=== PATIENT | female | born 2000 | race Caucasian/White ===

== ENCOUNTER 2024-06-21 15:59 | Outpatient (CLI) | payer OTHER, MEDICAID, SELFPAY | END 2024-06-21 16:00 | disposition home or self-care (01) | PROVIDERS: Visit Provider Advanced Practice Midwife | DX: Z34.81 Encounter for supervision of other normal pregnancy, first trimester (principal); Z3A.12 12 weeks gestation of pregnancy | CPT/HCPCS: 83520; 84443 ==

== ENCOUNTER 2024-08-12 12:47 | Outpatient (CLI) | payer BC, OTHER, SELFPAY ==
--- NOTE | 2024-08-12 13:00 | CRLHL7_ITS ---
For Patients: As a result of the Century Cures Act, medical imaging exams and procedure reports are released immediately into your electronic medical record. You may view this report before your referring provider. If you have questions, please contact your health care provider. INDICATION: 2nd trimester anatomical survey. TECHNIQUE: Ultrasound OB pelvis transabdominal. Real-time pope-scale imaging of the fetus was performed as well as color Doppler and spectral Doppler analysis of the umbilical artery. COMPARISON: 06/03/2024. FINDINGS: Intrauterine gestation: Single. heart rate: Regular, 149 bpm. presentation: Cephalic. Placenta: Posterior without previa. Cervix: 5 cm. Amniotic fluid: 4 cm deepest pocket. Biometry: Biparietal diameter: 19 weeks 2 days. Head circumference: 20 weeks 0 days. Abdominal circumference: 20 weeks 4 days. Femur length: 20 weeks 0 days. EFW: 341 gm, 28 %. Anatomical Survey: 4 chamber heart: Visualized. Stomach: Visualized. Kidneys: Visualized. Bladder: Visualized. Spine: Visualized. Sacrum: Visualized. 4 extremities: Visualized. Cord insertion: Visualized. 3V cord: Visualized. Face: Visualized. Nose: Visualized. Lips: Visualized. Cerebellum: Visualized. Cisterna Magna: Visualized. Lateral ventricles: Visualized. IMPRESSION: 1. Single viable intrauterine . 2. No intrinsic abnormalities noted on anatomic survey. Dictated by Wilfrid Gudino MD @ 08/15/2024 8:38:59 PM (Electronically Signed)
== END 2024-08-12 12:48 | disposition home or self-care (01) ==
LOC: US 12:47
PROVIDERS: Visit Provider Obstetrics & Gynecology
DX: Z34.92 Encounter for supervision of normal pregnancy, unspecified, second trimester (principal); Z3A.20 20 weeks gestation of pregnancy
CPT/HCPCS: 76805

== ENCOUNTER 2024-08-27 11:06 | Outpatient (CLI) | payer OTHER, BC, SELFPAY ==
--- NOTE | 2024-08-27 11:15 | CRLHL7_ITS ---
For Patients: As a result of the Century Cures Act, medical imaging exams and procedure reports are released immediately into your electronic medical record. You may view this report before your referring provider. If you have questions, please contact your health care provider. INDICATION: Suboptimal views of cardiac anatomy COMPARISON: 08/12/2024 TECHNIQUE: Real time pope scale imaging of the fetus was performed. FINDINGS: Sonographic imaging demonstrates a single living intrauterine gestation. Fetus demonstrates a regular cardiac rate of 155 beats per minute. Fetus has a breech position. The placenta lies left-sided anterior/posterior. Amniotic fluid volume appears normal. Single deepest vertical pocket: 5.7 cm. There is a normal four-chamber heart view and the left and right ventricular outflow tracts appear normal. Normal 3VV and 3VTV. IMPRESSION: Normal cardiac views. Dictated by Connor Domínguze MD @ 08/30/2024 4:28:27 PM (Electronically Signed)
== END 2024-08-27 11:07 | disposition home or self-care (01) ==
LOC: US 11:07
PROVIDERS: Visit Provider Obstetrics & Gynecology
DX: O36.8390 Maternal care for abnormalities of the fetal heart rate or rhythm, unspecified trimester, not applicable or unspecified (principal)
CPT/HCPCS: 76816

== ENCOUNTER 2024-10-05 13:16 | Outpatient (CLI) | payer OTHER, BC, SELFPAY | END 2024-10-05 13:17 | disposition home or self-care (01) | LOC: NFLDREF 10-08 21:56 | PROVIDERS: Visit Provider Obstetrics & Gynecology | DX: Z34.93 Encounter for supervision of normal pregnancy, unspecified, third trimester (principal); Z3A.28 28 weeks gestation of pregnancy | CPT/HCPCS: 86592 ==

== ENCOUNTER 2024-10-20 13:56 | Outpatient (CLI) | payer OTHER, BC, SELFPAY ==
--- NOTE | 2024-10-20 14:00 | CRLHL7_ITS ---
For Patients: As a result of the Century Cures Act, medical imaging exams and procedure reports are released immediately into your electronic medical record. You may view this report before your referring provider. If you have questions, please contact your health care provider. INDICATION: Size inconsistent with dates TECHNIQUE: Limited transabdominal two-dimensional pope-scale ultrasound examination. COMPARISON: 08/27/2024 FINDINGS: There is a living fetus in cephalic lie with gestational age of 30 weeks 3 days by LMP and 31 weeks 3 days by today`s measurements EDC based on LMP is 12/26/2024. BPD: 7.9 cm, 31 weeks 5 days Head circumference: 29.2 cm, 32 weeks 1 day Abdominal circumference: 28.2 cm, 32 weeks 3 days Femur length: 5.6 cm, 29 weeks 4 days HC/AC: 19.9 The weight is estimated at 1753 grams, the 71st percentile. The heart rate is measured at 155 beats per minute and the rhythm appears regular. The amniotic fluid volume is within normal limits with single deepest pocket of 5.8 cm. The placenta is posterior and superior to the cervical os. There is no evidence of previa. IMPRESSION: 1. Living fetus in cephalic lie with gestational age of 30 weeks 3 days by LMP and 31 weeks 3 days by today`s measurements EDC based on LMP is 12/26/2024. 2. weight estimated at 1753 grams, the 71st percentile. 3. ML volume within normal limits with single deepest pocket measured at 5.8 cm. Dictated by Bairon Segura MD @ 10/21/2024 11:02:24 AM (Electronically Signed)
== END 2024-10-20 13:57 | disposition home or self-care (01) ==
LOC: US 13:58
PROVIDERS: Visit Provider Obstetrics & Gynecology
DX: O26.843 Uterine size-date discrepancy, third trimester (principal); Z3A.30 30 weeks gestation of pregnancy
CPT/HCPCS: 76816

== ENCOUNTER 2024-11-15 10:05 | Outpatient (CLI) | payer OTHER, BC, SELFPAY | END 2024-11-15 10:06 | disposition home or self-care (01) | LOC: NFLDREF 11-16 02:34 | PROVIDERS: Visit Provider Obstetrics & Gynecology | DX: O99.013 Anemia complicating pregnancy, third trimester (principal); Z3A.34 34 weeks gestation of pregnancy | CPT/HCPCS: 82728 ==

== ENCOUNTER 2024-11-23 13:47 | Outpatient (RCR) | payer OTHER, BC, SELFPAY ==
--- NOTE | 2024-11-18 08:16 | URNOTE ---
Request received for authorization for Iron Sucrose (Venofer) ([id number]). Prior authorization is not required per [facility] web site.
--- NOTE | 2024-11-18 08:18 | URNOTE ---
Request received for authorization for Iron Sucrose (Venofer) ([id number]). Prior authorization is not required per R rep Chaim Lopez Ref#[id number], and pt has 2nd insurance [employer] no [place] danielq. per web site.
[2024-11-23 13:58] VITALS: BP 118/73; PULSE 100; RESP 16; TEMP 36.4; O2SAT 96
[2024-11-23 14:58] VITALS: BP 122/74; PULSE 100; RESP 16; TEMP 37; O2SAT 96
[2024-11-23 15:25] VITALS: BP 123/74; PULSE 93; RESP 18; O2SAT 97
== END 2025-05-22 23:59 | disposition home or self-care (01) ==
LOC: CCIC 13:47
PROVIDERS: PCP Physician Assistant; Visit Provider Clinical Nurse Specialist
DX: O99.013 Anemia complicating pregnancy, third trimester (principal); D50.9 Iron deficiency anemia, unspecified
CPT/HCPCS: 96365; J1756

== ENCOUNTER 2024-11-29 11:50 | Outpatient (CLI) | payer OTHER, BC, SELFPAY | END 2024-11-29 11:51 | disposition home or self-care (01) | LOC: NFLDREF 12-01 01:52 | PROVIDERS: PCP Physician Assistant; Visit Provider Obstetrics & Gynecology | DX: Z34.93 Encounter for supervision of normal pregnancy, unspecified, third trimester (principal); Z3A.36 36 weeks gestation of pregnancy | CPT/HCPCS: 87081; 87653 ==

== ENCOUNTER 2024-12-03 09:31 | Outpatient (CLI) | payer OTHER, BC, SELFPAY ==
[2024-12-03 09:37] VITALS: RESP 18; TEMP 36.6
[2024-12-03 10:30] LABS: Appearance Urine Turbid (Clear); Bilirubin Urine Negative (Negative); Blood Urine 2+ (Negative); Color Urine Yellow (Yellow); Glucose Urine Negative (Negative); Ketones Urine Negative (Negative); Leukocyte Esterase Urine 2+ (Negative); Nitrite Urine Negative (Negative); Protein Urine 1+ (Negative); Urobilinogen Urine 0.2 (0.2-1.0)
[2024-12-03 10:53] LABS: Bacteria Urine Moderate; RBC Urine 0-2 (0-2); Squamous Epithelial Cell Urine Many (None-Few)
--- NOTE | 2024-12-03 12:45 | PC.OBNST ---
NST Note NST Note Start: 12/03/24 09:38 Freq: ONCE Status: Active Protocol: Document 12/03/24 09:38 [facility] (Rec: 12/03/24 12:45 [facility] [id number]) NST Note 2 Para (# of births) 1 EDC 12/26/24 Gestational Age In Weeks & Days 36 Weeks & 5 Days Patient Presented with Complaint(s) of Contractions/cramping Other Complaints positive for UTI Reactive Yes Appropriate for Gestational Age Yes JOHNNIE Valle RN Date 12/03/24 Reactive Yes Appropriate for Gestational Age Yes JOHNNIE Veras RN Date 12/03/24 OB NST charge Yes Complete NST Note via Write Note Yes The provider's electronic signature indicates the NST is reactive/appropriate for gestational age. *Note to provider: If an addendum is required, open the patient's chart and click on the note under the Nurse/Allied Health tab.
== END 2024-12-03 12:45 | disposition home or self-care (01) ==
LOC: OB OUT 09:33 → OB 09:36
PROVIDERS: PCP Physician Assistant; Visit Provider Obstetrics & Gynecology
DX: O47.03 False labor before 37 completed weeks of gestation, third trimester (principal); Z3A.36 36 weeks gestation of pregnancy
CPT/HCPCS: 59025; 81001; 81003; 87086; G0463

== ENCOUNTER 2024-12-17 12:48 | Outpatient (CLI) | payer OTHER, BC, SELFPAY ==
--- NOTE | 2024-12-17 13:00 | CRLHL7_ITS ---
For Patients: As a result of the Century Cures Act, medical imaging exams and procedure reports are released immediately into your electronic medical record. You may view this report before your referring provider. If you have questions, please contact your health care provider. EFREN by LMP: 12/26/2024. GA: 38w, 5d. COMPARISONS: 10/20/2024, 08/27/2024, 08/12/2024, 06/03/2024. Single. INDICATION: Growth, size/date discrepancy. CERVIX: Not visualized. POSITIONING: Vertex. AMNIOTIC FLUID: 6.8 cm SDP. PLACENTA: Technique: Transabdominal. PLACENTA POSITION: Posterior left wall. DOPPLER: heart rate: 152 bpm. Biometry: BPD: 10.0 cm. 41w, 1d, >97 percent. HC: 35.7 cm. OOR, 94.5 percent. AC: 38.6 cm. OOR, >97 percent. FL: 7.0 cm. 36w, 0d, 4.3 percent. FL/AC ratio: 18.2 percent. HC/AC ratio: 0.9. EFW: 4324 g. Weight: 9 lbs, 9 oz. age by this US: 38w, 4d. EFREN by this US: 12/27/2024. Percentile by EFREN: >97 percent. IMPRESSION: 1. Sonographic gestational age 38 weeks 4 days and sonographic due date 12/27/2024. Good correlation with dates. Normal interval growth. 2. Estimated weight greater than 97th percentile. Abdominal circumference and BPD greater than 97th percentile. FL 4th percentile. 3. Biophysical profile not performed. Connor Domínguez M.D. Diagnostic Radiologist [email or web address] bM/Dictated by: Connor Domínguez MD @ 12/17/2024 3:58:00 PM (Electronically Signed)
== END 2024-12-17 12:49 | disposition home or self-care (01) ==
LOC: US 12:48
PROVIDERS: PCP Physician Assistant; Visit Provider Obstetrics & Gynecology
DX: O26.843 Uterine size-date discrepancy, third trimester (principal); Z3A.38 38 weeks gestation of pregnancy
CPT/HCPCS: 76816

== ENCOUNTER 2024-12-20 05:40 | Inpatient (IN) | payer OTHER, BC, SELFPAY ==
[2024-12-20] VITALS (28 sets, daily range): BP systolic 130–152; BP diastolic 67–90; PULSE 76–106; RESP 16–20; TEMP 36.7–37.2; O2SAT 84–100; BMI 38.7
[2024-12-20 06:40] LABS: Hemoglobin* 9.7 gm/dL (12.0-16.0)
[2024-12-20] MEDS: LACTATED RINGERS 1000 ML 1,000 ML 800 ML IV (06:42)
--- NOTE | 2024-12-20 07:12 | W.PM.LDBA ---
Subjective History of Present Illness Time Seen by Provider: 07:12 Date Seen: 12/20/24 Narrative: Patient is being admitted to Labor and Delivery for schedule repeat CD. She is a 24 year old at 39.1 weeks gestation. Her full history and physical was dictated by myself on 11/29/24. Please see this for details. She is nervous today but excited to delivery as she's been having MSK pain. Intermittent nonpainful contractions. Denies LOF, vaginal bleeding, or abnormal vaginal discharge. Specific Issues/Plans Partner: Burt Son: Burt (child by a previous partner). Baby: Lisa Tx pt from [place] at 13 wks H&P: 11/29/[address] Nguyen. #Hx of C/S last delivery desires TOLAC-changed her mind would like repeat delivery. Reviewed consent and given to the patient on 07/22/2024 Chance of successful : 51.3% Consent signed for repeat CD on 11/29/24 #Anemia at 28 weeks 9.4mg/dL Ferrous sulfate 325 mg QOD Repeat hemoglobin at 34 weeks s/p Iron Infusion on 11/23/24 #Hx of anxiety and depression not on medications, feels stable on tx visit # TSH with NOB labs 3.51 free T4 1.06 recheck of TSH on tx visit TSH 2.7, no hx of thyroid disorder OB Labs: ? Blood type: A+, antibody screen negative. ? Hgb: 12.5 ? Platelets: 210 ? Rubella: Immune ? Varicella: Immune RPR: non-reactive ? HBsAg: non-reactive ? Hep C: negative HIV: negative ? UC: negative GC/Chlamydia: negative/negative ? Pap (01/06/22): NIL Genetic screening: declined 34 week hgb: 9.8 s/p IV iron on 11/23 ? IMAGING: ? 1st trimester: Single intrauterine measuring 10 weeks 0 days with a sonographic due date of December. No abnormalities seen. ? 08/12/2024 2nd trimester FAS: Vtx, SDP: 4.3cm. Suboptimal visualization of cardiac anatomy otherwise no abnormalities were visualized. EFW: 342g, 12 oz, 28%. 10/20/24: cephalic, normal fluid, EFW 71%, AC 91%, all other growth parameters within normal ranges. Immunizations: Influenza: declines Covid: declines Tdap: 10/19/24 RSV: 11/15/2024 32 week mental health: PHQ = 0, CIERRA =0 GBS: 11/29/24 OB - Problem Based A/P Additional Plan (1) Anemia: Status: Acute Plan: - Hgb at 9.4 on 10/05/24 - S/p IV iron on 11/23/24 - Hgb 9.7 gm/dL on 12/20/24 - T&S: A+ , antibody screen negative (2) Hx of section complicating : Status: Acute Plan: - We reviewed her consent again. We are having a repeat delivery for the indication of hx of previous CD x 1 and declined TOLAC. The patient was consented for section and blood. She understands that the four main categories of risk include pain, bleeding, infection, and damage to surrounding structures. Intraoperative pain will be manage with spinal anesthesia or epidural anesthesia. If that those are not effective or not appropriate for the clinical situation, general anesthesia will be administered. Immediately postop, TAP block will be performed. Throughout her recovery course, she will have on PO pain medications such as ibuprofen, Tylenol, and oxycodone. Regarding infection, she understands that we will be delivering appropriate antibiotics, however that the risk of infection following section still is approximately 5%. She understands that though the risk is very low that there is always a risk of damage to the bladder, uterus, ovaries, fallopian tubes, bowels, ureters, or even the fetus. She understands that most injuries can be addressed at the time of surgery, however, such an injury may require additional surgeries to fix. She understands that a section carries a risk of bleeding, and that while this bleeding can be addressed with multiple medical and surgical modalities (including hysterectomy), that there is the possibility of needing a blood transfusion. She reports she would accept a blood transfusion understanding the low risk of infection as well as the risk of having an allergic reaction to the blood products. She further understands that this reaction is typically mild, however can be severe including respiratory distress and necessitating ICU-level care. She is starting at a low hgb, thus increasing her risk of transfusion. Will give her 40 u of Pitocin for 3rd stage management. Lastly, she understands that a section does increase risks for future pregnancies and deliveries including, but not limited to, the risk of uterine rupture or placenta accreta. We also reviewed postoperative care, recovery, and restrictions. (3) Size of fetus inconsistent with dates in third trimester: Status: Acute Plan: - 12/17/24: EFW is 9 lb 9 oz, which is >97%, AC >97%, SDP 6.8 cm. OB Exam Physical Exam Vital signs: Temp Pulse BP 98.2 F 106 H 132/75 12/20/24 06:35 12/20/24 06:32 12/20/24 06:32 Narrative: Physical exam: General: No acute distress Psych: Alert and oriented x4, full affect HEENT: Normocephalic, atraumatic Heart: Regular rate and rhythm, no murmur rub or gallop Lungs: Clear to auscultation bilaterally Abdomen: Gravid, soft, no tenderness, rebound, or guarding. Cephalic Incision(s): Appropriately healed Skin: No lesions or rashes Lower extremities: +1 bilateral lower extremity edema Pelvic exam: Deferred
[2024-12-20] MEDS: CEFAZOLIN 2 GM INJ IVP (07:40)
[2024-12-20] MEDS: KETOROLAC 30 MG/ML inj IVP ×3 (08:25→20:28)
--- NOTE | 2024-12-20 08:29 | PM.OBPRCCS ---
Procedure Time Seen by Provider: 08:29 Date of procedure: 12/20/24 Will [facility] bill your pro fee for this procedure?: Yes Procedure Description: DELIVERY BY SECTION Date of Service: 12/20/24 Delivery time: 716 Summary: Admitted for schedule delivery at 39.1 weeks, repeat Lower uterine transverse section, Pfannenstiel, Closed with sutures, QBL 865 cc, No complications, Findings: Minimal filmy intraabdominal adhesions. Normal uterus, bilateral ovaries and tubes 8/9, weight: 9lb 6oz Primary Indication: 1. Previous CD x 1 2. Declined TOLAC Procedures: Repeat Lower uterine transverse section Specimens Removed: Placenta Surgeon: Kira Nguyen MD Anesthesia: Spinal and TAP Report: Prophylactic antibiotic, 2 g of Ancef was given before patient was taken to OR. After arrival to the operating room patient was placed in the supine position with left lateral tilt after administration of spinal anesthesia. Laparotomy A pfannenstiel incision was made through the anterior abdominal wall with #10 scalpel approximately 2 cm above the pubic symphysis. The incision was extended sharply with the #10 scalpel through the subcutaneous tissue to the level of fascia. The fascia was entered sharply with a #10 scalpel (Pfannenstiel) in the midline and extended in semi-elliptical fashion with Pugh scissor. The underlying muscles were dissected off the overlying fascia by grasping the superior aspect of fascia with two ammon clamps and blunt dissection was used along the midline. The fascia was further from rectus muscle with Pugh scissor and/or cautery. In similar fashion, the lower aspect of fascia was also grasped with two Ammon clamps and both blunt and sharp dissection was used to separate fascia from rectus muscle. The rectus muscles were in the midline with Amanda's. The peritoneum was then entered sharply with Metzenbaum. The peritoneal incision was then extended superiorly and inferiorly under direct visualization with care being taken to avoid bladder and bowel. Minimal filmy adhesions noted. The peritoneal incision was enlarged bluntly by lateral traction from the surgeon's and business development assistant's hand. Dell retractor was inserted into the abdomen. Delivery A bladder flap was developed by grasping with Faroese forcep and enter with Metzenbaun scissor. Then sharp and blunt dissection with Metzenbaum scissor and fingers were performed. A low transverse hysterotomy was made then with #10 scalpel and extended laterally and cephalad with fingers in a low transverse fashion with Manu Don technique with care being taken to avoid injury to the fetus. The amniotic cavity (membrane) was then entered with spontaneous rupture of membrane, and the amniotic fluid was noted to be clear, fetus was delivered cephalic. With delivery of the baby, no extension was noted. Placenta was delivered spontaneously with steady traction on cord and manual separation of placenta from uterine wall. Closure Uterine cavity was cleaned after placental delivery with lap sponge x 2. The hysterotomy was closed in two layers with stitches using 0 vicryl with continuous locking stitches and 0 monocryl in a continuous non locking manner. Hemostasis was achieved as needed with electrocautery. The ovaries/tubes/uterine surface were evaluated. They were found to be normal. Dell retractor removed and hemostasis was confirmed again. Fascia was closed with running stitches using 0 PDS. Subcutaneous layer was irrigated. Hemostasis was checked for and found to be adequate. The subcutaneous layer was closed with running 2-0 chromic sutures. The skin was closed with monocryl subcuticular sutures. The incision was cleaned and covered with a compression bandage and the procedure considered terminate at this time. Intraoperative Complications: None QBL: 865 cc Uterotonics: 40u of pitocin, 0.2 mg of methergine x 1 Disposition: The patient tolerated the procedure well. She was recovered in Obstetric PACU for close monitoring in stable condition, with a contracted uterus and normal transvaginal bleeding. The was sent to mother?s bedside/PACU. The placenta was not sent to pathology. Debrief with OR team performed and specimen reviewed at the conclusion of the procedure.
--- NOTE | 2024-12-20 08:58 | W.PM.NB ---
Nerve Block Nerve Block Type of block requested by surgeon for post-operative analgesia: TAP Side: bilateral Time out performed: Yes Verification of patient name: Yes Verification of date of : Yes Site marking: not applicable Continuous monitoring Was continuous monitoring of O2 sat, B/P, wet milling wheel operator, recorded every 15 minutes?: Yes Procedure Checklist: sterile prep, needles and gloves Ultrasound guided. Images saved: Yes Medications given in 5ml increments after negative aspiration: Marcaine %: 25 mL: 30 Needle gauge: 20 and Exparel mL: 10 Needle gauge: 20 Patient tolerated procedure well: Yes Block Charges Block Charge (with Pro Fee): TAP Bilateral Use of Ultrasound Machine for Block: Yes- US Guidance/pain block
--- NOTE | 2024-12-20 08:59 | P.ANES_ITS ---
Anesthesia Charges Start Date/Time Anesthesia Start Date: 12/20/24 Anesthesia Start Time: 07:22 Stop Date/Time Anesthesia Stop Date: 12/20/24 Anesthesia Stop Time: 08:52 Coding CPT Codes CPT Codes: ANESTH CS DELIVERY - 49078 ([id number]) P3 - PATIENT W/SEVERE SYS DISEASE, QK - DIE DEVELOPER 2-4 CNCRNT ANES PROC, QX - SENIOR MAINTENANCE MECHANIC SVC W/ MD MED DIRECTION
--- NOTE | 2024-12-20 08:59 | W.ANESCHARGE ---
Anesthesia Charges Start Date/Time Anesthesia Start Date: 12/20/24 Anesthesia Start Time: 07:22 Stop Date/Time Anesthesia Stop Date: 12/20/24 Anesthesia Stop Time: 08:52 Coding CPT Codes CPT Codes: ANESTH CS DELIVERY - 47899 ([id number]) P3 - PATIENT W/SEVERE SYS DISEASE, QK - VENEER JOINTER OFFBEARER 2-4 CNCRNT ANES PROC, QX - MINK SLICER SVC W/ MD MED DIRECTION
--- NOTE | 2024-12-20 09:23 | P.ANES_ITS ---
Anesthesia Charges Start Date/Time Anesthesia Start Date: 12/20/24 Anesthesia Start Time: 07:22 Stop Date/Time Anesthesia Stop Date: 12/20/24 Anesthesia Stop Time: 08:52 Coding CPT Codes CPT Codes: ANESTH CS DELIVERY - 11496 ([id number]) QK - IMPORT COORDINATION AND PRODUCTION HEAD 2-4 CNCRNT ANES PROC, QX - TOW FEEDER SVC W/ MD MED DIRECTION, P3 - PATIENT W/SEVERE SYS DISEASE
--- NOTE | 2024-12-20 09:23 | W.ANESCHARGE ---
Anesthesia Charges Start Date/Time Anesthesia Start Date: 12/20/24 Anesthesia Start Time: 07:22 Stop Date/Time Anesthesia Stop Date: 12/20/24 Anesthesia Stop Time: 08:52 Coding CPT Codes CPT Codes: ANESTH CS DELIVERY - 16908 ([id number]) QK - TELECOMMUNICATOR SUPERVISOR 2-4 CNCRNT ANES PROC, QX - SUPERINTENDENT SCHOOLS SVC W/ MD MED DIRECTION, P3 - PATIENT W/SEVERE SYS DISEASE
[2024-12-20 10:57] LABS: Aspartate Amino Transferase* 39 U/L (12-35); Creatinine* 0.6 mg/dL (0.5-1.5); Est. Creatinine Clearance* 128.98; Estimated Glomerular Filt Rate 128 ml/min
[2024-12-20 10:58] LABS: Alanine Aminotransferase* 28 U/L (4-35); Blood Urea Nitrogen* 6 mg/dL (5-24)
[2024-12-20 11:05] LABS: Hemoglobin* 10.4 gm/dL (12.0-16.0); Mean Corpuscular HGB Conc 32 gm/dL (32-36); Mean Corpuscular Hemoglobin 27 pg (26-34); Mean Corpuscular Volume 86 fL (80-100); Platelet Count* 183 K/uL (140-440); Red Blood Count 3.86 m/uL (4.00-5.20); White Blood Count* 12.09 K/uL (4.50-11.00)
[2024-12-20 11:08] LABS: Slide Review Reflex No
[2024-12-20] MEDS: LACTATED RINGERS 1000 ML 1,000 ML 125 ML IV (11:10)
[2024-12-20 11:30] LABS: Total Protein Urine 36 mg/dL
[2024-12-20 11:31] LABS: Creatinine Urine 35.5 mg/dL; Protein Creatinine Ratio Urine 1.01 (0-0.19)
[2024-12-20] MEDS: ONDANSETRON 2 MG/ML inj 4 MG IVP (14:03)
[2024-12-20] MEDS: NIFEdipine 30 MG TAB.ER.24 PO (20:59)
[2024-12-21] VITALS (12 sets, daily range): BP systolic 119–140; BP diastolic 73–84; PULSE 70–96; RESP 14–18; TEMP 36.8–36.9; O2SAT 94–99
[2024-12-21] MEDS: KETOROLAC 30 MG/ML inj IVP ×3 (02:42→15:37)
[2024-12-21 06:43] LABS: Hemoglobin* 8.7 gm/dL (12.0-16.0)
--- NOTE | 2024-12-21 07:51 | PM.OBPNVD1 ---
OB - PN:Subj Subjective Date Seen: 12/21/24 Narrative: Corona is a 24 y.o. who was admitted to L & D for a scheduled C/S.? She had an uncomplicated repeat .? ? The patient feels well.? The pain is well controlled with current medications.? She has no new complaints.? She is pumping and bottling and reports things are going well, she has noticed more colostrum since last evening.? the patient has done well.? Vitals have been stable.? She has remained afebrile.? Has a good appetite, is tolerating a general diet.? She is voiding without difficulty.? She is passing gas and has not had a bowel movement.? She is ambulating and denies any dizziness.? Has Small amount of rubra lochia.? OB - PN: Obj Exam Physical Exam: Vital signs: Temp Pulse Resp BP Pulse Ox O2 Del Method 98.2 F 70 16 122/74 97 Room Air 12/21/24 05:00 12/21/24 05:00 12/21/24 05:00 12/21/24 05:00 12/21/24 05:00 12/21/24 05:00 Narrative: GENERAL APPEARANCE:? normal affect, alert, no distress MOOD:? appropriate CHEST:? clear to auscultation HEART:? regular rate and rhythm ABDOMEN:? soft, non-tender the uterine fundus is firm At Umbilicus, Midline and is appropriate for the stage of recovery. EXTREMITIES:? normal and trace edema Incision: dressing clean dry and intact, due to be removed today OB - PN: Obj Data Labs Labs: Laboratory Results - last 24 hr 12/20/24 12/20/24 12/21/24 10:33 Unknown 06:23 WBC 12.09 H RBC 3.86 L Hgb 10.4 L 8.7 L Hct 33.0 MCV 86 MCH 27 MCHC 32 Plt Count 183 BUN 6 Creatinine 0.6 Estimated Creat Clear 128.98 Estimated GFR 128 AST 39 H ALT 28 Urine Creatinine 35.5 Protein/Creatinin Ratio 1.01 H Urine Total Protein 36 OB - PN: A/P Delivery Assessment and Plan (1) Anemia: Status: Acute (2) care following delivery: Status: Acute (3) Hx of section complicating : Status: Acute (4) Size of fetus inconsistent with dates in third trimester: Status: Acute (5) Lactating mother: Status: Acute Plan day: 1 Plan: routine care Comments: Assessment/Plan?G 2 P 2 status post uncomplicated repeat .? ?? 1.? Continue route PP cares? 2.? .? May see if desired? 3.? Anticipate discharge home tomorrow or the following day per pt preference? 4.? Acute anemia.? Iron supplement ordered?
[2024-12-21] MEDS: ENOXAPARIN 40 MG/0.4 ML INJ SUBCUT (08:14)
[2024-12-21] MEDS: FERROUS SULFATE 325 MG TABLET PO (08:15)
[2024-12-21] MEDS: DOCUSATE SODIUM 100 MG CAPSULE PO (08:15)
[2024-12-21 08:48] LABS: Hematocrit 27.9 % (33.0-51.0); Hemoglobin* 8.7 gm/dL (12.0-16.0); Mean Corpuscular HGB Conc 31 gm/dL (32-36); Mean Corpuscular Hemoglobin 27 pg (26-34); Mean Corpuscular Volume 86 fL (80-100); Platelet Count* 176 K/uL (140-440); Red Blood Count 3.24 m/uL (4.00-5.20); White Blood Count* 10.11 K/uL (4.50-11.00)
[2024-12-21 08:52] LABS: Slide Review Reflex No
[2024-12-21 09:01] LABS: Alanine Aminotransferase* 30 U/L (4-35); Aspartate Amino Transferase* 58 U/L (12-35); Blood Urea Nitrogen* 8 mg/dL (5-24); Creatinine* 0.6 mg/dL (0.5-1.5); Est. Creatinine Clearance* 128.98; Estimated Glomerular Filt Rate 128 ml/min
[2024-12-21] MEDS: SODIUM CHLORIDE 0.9 % (FLUSH) 10 ML SYRINGE IVF (09:35)
[2024-12-21] MEDS: NIFEdipine 30 MG TAB.ER.24 PO (20:36)
[2024-12-21] MEDS: ACETAMINOPHEN 500 MG TABLET 1000 MG PO (20:37)
[2024-12-21] MEDS: IBUPROFEN 600 MG TABLET PO (23:47)
[2024-12-22 05:40] VITALS: BP 126/81; PULSE 102; RESP 16; TEMP 36.9; O2SAT 95
[2024-12-22] MEDS: ACETAMINOPHEN 500 MG TABLET 1000 MG PO ×2 (06:04→12:46)
[2024-12-22] MEDS: ONDANSETRON 2 MG/ML inj 4 MG IVP (06:08)
[2024-12-22 08:48] VITALS: BP 128/80; PULSE 91; RESP 16; TEMP 36.7; O2SAT 95
--- NOTE | 2024-12-22 09:26 | PM.OBPNVD1 ---
OB - PN:Subj Subjective Date Seen: 12/22/24 Narrative: Corona is a 24 year old who was admitted for scheduled repeat .The patient feels well.? The pain is controlled with current medications.? She has no new complaints.? Urinary output is adequate and she is voiding without difficulty.? Has a good appetite, is tolerating a general diet, is passing flatus, and has had a bowel movement.? Has small amount of rubra lochia.? She is ambulating well. OB - PN: Obj Exam Physical Exam: Vital signs: Temp Pulse Resp BP Pulse Ox O2 Del Method 98.1 F 91 16 128/80 95 Room Air 12/22/24 08:48 12/22/24 08:48 12/22/24 08:48 12/22/24 08:48 12/22/24 08:48 12/22/24 08:48 Narrative: GENERAL APPEARANCE:? normal affect, alert, no distress MOOD:? appropriate CHEST:? clear to auscultation HEART:? regular rate and rhythm ABDOMEN:? soft, non-tender the uterine fundus is At Umbilicus, Midline and is appropriate for the stage of recovery. EXTREMITIES:? normal and mild edema Incision: Healing well, no surrounding erythema, abnormal induration or discharge OB - PN: A/P Delivery Assessment and Plan (1) care following delivery: Status: Acute (2) Anemia: Status: Acute (3) Hx of section complicating : Status: Acute (4) Size of fetus inconsistent with dates in third trimester: Status: Acute (5) Lactating mother: Status: Acute Plan Comments: PP day #2 Routine care May see as desired Anticipate discharge either today or tomorrow. Will send BP cuff home with patient. Planning condoms for contraception. Abdominal binder ordered for comfort. She wants to avoid use of narcotics if able and states she does not want to take any home.
[2024-12-22] MEDS: NIFEdipine 30 MG TAB.ER.24 PO (09:28)
[2024-12-22] MEDS: ENOXAPARIN 40 MG/0.4 ML INJ SUBCUT (09:30)
[2024-12-22] MEDS: DOCUSATE SODIUM 100 MG CAPSULE PO (09:30)
[2024-12-22] MEDS: IBUPROFEN 600 MG TABLET PO ×2 (09:31→18:40)
[2024-12-22 13:42] VITALS: BP 135/77; PULSE 98; RESP 16; TEMP 37.1; O2SAT 97
--- NOTE | 2024-12-22 14:40 | PM.OBDSVD1 ---
DS: Providers Provider Date Seen: 12/22/24 Date of admission: 12/20/24 05:40 Primary care physician: Lizbet Zapata PA-C Admitting Clinician: Kira Nguyen MD Attending Physician on discharge: Luis ALDANA Date of Discharge: 12/22/24 DS: Diagnosis Discharge Diagnosis (1) care following delivery: Status: Acute (2) Pre-eclampsia: Status: Acute (3) Lactating mother: Status: Acute (4) Anemia: Status: Acute Exam Narrative: Exam Narrative: GENERAL APPEARANCE:? normal affect, alert, no distress MOOD:? appropriate See exam from previous note today. Const: Vital Signs, click to edit/add: Vital Signs - 24 hr 12/21/24 15:38 12/21/24 20:30 12/21/24 23:40 Temperature 98.3 F 98.4 F Pulse Rate [Pulse Oximeter] 95 94 85 Respiratory Rate 14 16 16 Blood Pressure [Ri ght Arm] 127/75 140/84 H 132/78 Pulse Oximetry 94 Oxygen Delivery Me thod Room Air Room Air Room Air 12/22/24 05:40 12/22/24 08:48 12/22/24 13:42 Temperature 98.4 F 98.1 F 98.7 F Pulse Rate [Pulse Oximeter] 102 H 91 98 Respiratory Rate 16 16 16 Blood Pressure [Ri ght Arm] 126/81 128/80 135/77 Pulse Oximetry 95 95 97 Oxygen Delivery Me thod Room Air Room Air Room Air OB - DS: Summary Hospital Course Hospital Course: Corona is a 24 y.o. G 2 P 2002 who was admitted to [facility] & [facility] for scheduled repeat .? She had a NVD that was uncomplicated, but preeclampsia was diagnosed . Persistent mild elevations of blood pressure prompted Nifedipine XR daily to be initiated. The patient feels well.? The pain is well controlled with current medications.? She has no new complaints.?She is declining any narcotics for home use. She is breast feeding and reports things are going well. She has been normotensive since?12/21/24 at 2030. She has remained afebrile.? Has a good appetite, is tolerating a general diet.? She is voiding without difficulty.? She is passing gas and has had a bowel movement.? She is ambulating and denies any dizziness.? Has small amount of rubra lochia. She is planning condoms for prevention.? ?? Problems: preeclampsia? ?? plan:? Discharge home with baby.? Follow up in 2 weeks and 6 weeks.? , may see if needed? Hgb 8.7. Iron supplement ordered orally every other day? Iron and Nifedipine RX sent Preeclampsia? Labs WNL or stable with trending? Discharge home with BP cuff Follow up in 3-5 days? Call for signs/symptoms of preeclampsia? Peripartum Data delivery method: Repeat Section Episiotomy description: None Procedures: Procedures Operation Date: 12/20/24 07:15 Actual Procedure Side Surgeon p Repeat Not Applicable Kirasp Nguyen MD complications: other (Preeclampsia) [facility] Gender: Female Discharge Plan: Home Status at Discharge Overall status at discharge: patient is progressing back to baseline Time Spent with Patient Time attestation: Total time spent providing and/or coordinating discharge services: Time spent: Less than 30 minutes Discharge Plan Discharge Disposition: Home, Self-Care Date of Admission: 12/20/24 05:40 Attending Provider on Discharge: Debra Worthington Primary Care Provider: Lizbet Zapata Condition: Stable Anticipated Discharge Date/Time: 12/22/24 14:51 Discharge Medications: New ferrous sulfate 325 mg (65 mg iron) Tablet 325 mg PO Q48H Qty: 60 0RF nifedipine 30 mg Tablet Extended Release 24hr 30 mg PO DAILY Qty: 30 1RF Continued multivitamin [Daily Multi-Vitamin] Tablet 1 tab PO QDAY Discharge Orders: Discharge Order (Routine); Ordered 12/22/24 Ordered By: Debra Worthington Patient Education: OB [facility], OB /Breast Feeding Additional Instructions: Discharge instructions were reviewed with the patient including signs and symptoms of infection and home going medications Lifting Restrictions: 20 pounds for 6 weeks No not submerge incision under water X 2 weeks? Nothing vaginally for 6 weeks: no tampons or intercourse Do not drive while taking narcotic pain medication(s) Off Work or School for 8 weeks Symptoms to report to doctor: Bleeding that saturates more than one pad per hour Passing clots larger than the size of a golf ball Pain not relieved by prescribed medication Fever above 100.4 degrees Fahrenheit A foul vaginal odor Difficulty in emotions, mood, and functions Thoughts of hurting yourself and/or Painful, reddened area in your breast Any drainage, redness, or tenderness in your IV/epidural site Severe headache that doesn't improve after taking medications Changes in vision, including temporary loss of vision, blurred vision, and/or light sensitivity Upper abdominal pain (usually under ribs on the right side) Decrease in urination or painful, frequent urinating Chest pain Shortness of breath Tenderness or pain with redness and/swelling in the calf(s) of your leg Follow [facility] for a BP check?12/24/2024 Call with BP greater than or equal to 160/110 2-week visit: incision check, discuss feeding concerns, review control options and screen for anxiety/depression. 6-week visit for an annual exam. consultation services are available to all mothers and babies for the first year after delivery.? To make an appointment, please call [phone]. Activity Level: No strenuous activity Discharge Diet: Regular Follow Up Appointments: [facility] [Provider Group] Forms: MyHealth Info Instructions
[2024-12-22 17:41] VITALS: BP 142/79; PULSE 83; RESP 16; TEMP 36.9; O2SAT 97
[2024-12-22 18:11] VITALS: BP 138/80
== END 2024-12-22 19:03 | disposition home or self-care (01) | DRG 788 ==
PROVIDERS: Advanced Practice Midwife; Admitting Provider Obstetrics & Gynecology; PCP Physician Assistant; Visit Provider Obstetrics & Gynecology
PROC: 10D00Z1 Extraction of Products of Conception, Low, Open Approach (ICD-10-PCS; CPT 59514; principal; 2024-12-20 07:15)
DX: O34.211 Maternal care for low transverse scar from previous cesarean delivery (principal); Z3A.39 39 weeks gestation of pregnancy; Z37.0 Single live birth; O99.02 Anemia complicating childbirth; D50.9 Iron deficiency anemia, unspecified; O99.344 Other mental disorders complicating childbirth; F41.9 Anxiety disorder, unspecified; F32.A Depression, unspecified; O14.05 Mild to moderate pre-eclampsia, complicating the puerperium; G89.18 Other acute postprocedural pain; O26.843 Uterine size-date discrepancy, third trimester
CPT/HCPCS: 01961; 36415; 64488; 76942; 82565; 82570; 84156; 84450; 84460; 84520; 85018; 85027; 86592; 86850; 86900; 86901; 94761; A4314; A9270; J0665; J0666; J0690; J1100; J1650; J1885; J2274; J2371; J2405; J2590; J2765; J7120

== ENCOUNTER 2024-12-24 12:35 | Outpatient (CLI) | payer OTHER, BC, SELFPAY | END 2024-12-24 12:36 | disposition home or self-care (01) | LOC: NFLDREF 12-25 03:30 | PROVIDERS: PCP Physician Assistant; Referring Provider Physician Assistant; Visit Provider Obstetrics & Gynecology | DX: O14.95 Unspecified pre-eclampsia, complicating the puerperium (principal) | CPT/HCPCS: 82565; 82570; 84156; 84450; 84460; 84520; 84550 ==

== ENCOUNTER 2024-12-24 13:48 | Inpatient (IN) | payer OTHER, BC, SELFPAY ==
[2024-12-24] VITALS (10 sets, daily range): BP systolic 122–162; BP diastolic 80–92; PULSE 66–109; RESP 16–18; TEMP 36.4–36.7; O2SAT 97–99
[2024-12-24] MEDS: LACTATED RINGERS 1000 ML 1,000 ML 75 ML IV (14:52)
[2024-12-24] MEDS: MAGNESIUM IV 4 GM/100 ML PIGGYBACK IVPB (14:52)
[2024-12-24] MEDS: MAGNESIUM Infusion 40 GM/1,000 ML IV.SOLN IVPB (15:23)
--- NOTE | 2024-12-24 16:52 | W.PM.LDBA ---
Subjective History of Present Illness Narrative: Patient is being admitted to Labor and Delivery for Preeclampsia with severe features. She is a 24 year old -0-0-2 woman on postoperative day 4 after repeat at term. She had an uncomplicated repeat with a QBL of 865 mL. She was diagnosed with preeclampsia without severe features during her in-hospital course. This was based on persistently elevated blood pressures in the mild range accompanied by proteinuria. She was started on nifedipine ER 30 mg once daily. She was ultimately discharged on this medication on 12/22/2024, postoperative day 2. She returned to clinic today with BPs 150s / 90s. HELLP labs showed transaminases newly elevated more than twice the upper limit of normal. Preeclampsia with severe features was diagnosed based on this finding. She was sent to Center for magnesium infustion. Past medical, surgical, family, and social history is are reviewed and updated in EHR Specific Issues/Plans Partner: Burt Son: Burt (child by a previous partner). Baby: Lsia Tx pt from [place] at 13 wks H&P: 11/29/[address] Nguyen. #Hx of C/S last delivery desires TOLAC-changed her mind would like repeat delivery. Reviewed consent and given to the patient on 07/22/2024 Chance of successful : 51.3% Consent signed for repeat CD on 11/29/24 #Anemia at 28 weeks 9.4mg/dL Ferrous sulfate 325 mg QOD Repeat hemoglobin at 34 weeks s/p Iron Infusion on 11/23/24 #Hx of anxiety and depression not on medications, feels stable on tx visit # TSH with NOB labs 3.51 free T4 1.06 recheck of TSH on tx visit TSH 2.7, no hx of thyroid disorder OB Labs: ? Blood type: A+, antibody screen negative. ? Hgb: 12.5 ? Platelets: 210 ? Rubella: Immune ? Varicella: Immune RPR: non-reactive ? HBsAg: non-reactive ? Hep C: negative HIV: negative ? UC: negative GC/Chlamydia: negative/negative ? Pap (01/06/22): NIL Genetic screening: declined 34 week hgb: 9.8 s/p IV iron on 11/23 ? IMAGING: ? 1st trimester: Single intrauterine measuring 10 weeks 0 days with a sonographic due date of December 301015. No abnormalities seen. ? 08/12/2024 2nd trimester FAS: Vtx, SDP: 4.3cm. Suboptimal visualization of cardiac anatomy otherwise no abnormalities were visualized. EFW: 342g, 12 oz, 28%. 10/20/24: cephalic, normal fluid, EFW 71%, AC 91%, all other growth parameters within normal ranges. Immunizations: Influenza: declines Covid: declines Tdap: 10/19/24 RSV: 11/15/2024 32 week mental health: PHQ = 0, CIERRA =0 GBS: 11/29/24 OB - Problem Based A/P Additional Plan (1) Pre-eclampsia: Problem details: with severe features based on transaminitis during course Status: Acute Plan: admit for IV magnesium sulfate infusion. HELLP labs q.6 hours. Strict ins and outs. Continue nifedipine, but increased doses to 60 mg of ER formulation q.a.m., 30 mg q.p.m.. IV antihypertensives for blood pressures greater than 160 systolic, 110 diastolic. (2) care following delivery: Status: Acute Plan: Routine cares otherwise (3) Anemia: Status: Acute Plan: continue ferrous sulfate every other day (4) Lactating mother: Status: Acute OB Result Labs Labs: Labs at 12:30 p.m.: Hemoglobin 10.2, platelets 289 Creatinine 0.7 AST 230, up from 58 ALT 148, up from 30 OB Exam Physical Exam Vital signs: Temp Pulse Resp BP Pulse Ox O2 Del Method 98.1 F 66 18 147/84 H 97 Room Air 12/24/24 14:00 12/24/24 14:45 12/24/24 14:00 12/24/24 16:00 12/24/24 14:30 12/24/24 14:45 Narrative: Physical exam: General: No acute distress Psych: Alert and oriented x3, full affect HEENT: Normocephalic, atraumatic Neck: No cervical adenopathy, no thyromegaly Heart: Regular rate and rhythm, no murmur rub or gallop Lungs: Clear to auscultation bilaterally Abdomen: Normoactive bowel sounds, soft, no tenderness, rebound, or guarding, no masses, no hepatosplenomegaly, no hernias, incision intact with surgical glue in place. Fundus at 2 cm below umbilicus. No right upper quadrant tenderness. Lower extremities: No edema or erythema
[2024-12-24 18:35] LABS: Hemoglobin* 10.3 gm/dL (12.0-16.0); Mean Corpuscular HGB Conc 31 gm/dL (32-36); Mean Corpuscular Hemoglobin 27 pg (26-34); Mean Corpuscular Volume 86 fL (80-100); Platelet Count* 282 K/uL (140-440); Red Blood Count 3.86 m/uL (4.00-5.20); White Blood Count* 9.19 K/uL (4.50-11.00)
[2024-12-24 18:43] LABS: Slide Review Reflex No
[2024-12-24 18:49] LABS: Alanine Aminotransferase* 153 U/L (4-35); Aspartate Amino Transferase* 211 U/L (12-35); Blood Urea Nitrogen* 11 mg/dL (5-24); Creatinine* 0.6 mg/dL (0.5-1.5); Estimated Glomerular Filt Rate 128 ml/min
[2024-12-24] MEDS: NIFEdipine 30 MG TAB.ER.24 PO (21:35)
[2024-12-25] VITALS (9 sets, daily range): BP systolic 118–145; BP diastolic 74–87; PULSE 93–113; RESP 16–20; TEMP 36.5–36.9; O2SAT 96–99
[2024-12-25 00:46] LABS: Hemoglobin* 10.4 gm/dL (12.0-16.0); Mean Corpuscular HGB Conc 31 gm/dL (32-36); Mean Corpuscular Hemoglobin 27 pg (26-34); Mean Corpuscular Volume 87 fL (80-100); Platelet Count* 254 K/uL (140-440); Red Blood Count 3.91 m/uL (4.00-5.20)
[2024-12-25 00:47] LABS: Slide Review Reflex No
[2024-12-25 00:58] LABS: Alanine Aminotransferase* 161 U/L (4-35); Aspartate Amino Transferase* 210 U/L (12-35); Blood Urea Nitrogen* 11 mg/dL (5-24); Creatinine* 0.5 mg/dL (0.5-1.5); Estimated Glomerular Filt Rate 133 ml/min
[2024-12-25 08:07] LABS: Hematocrit 34.2 % (33.0-51.0); Hemoglobin* 10.7 gm/dL (12.0-16.0); Mean Corpuscular HGB Conc 31 gm/dL (32-36); Mean Corpuscular Hemoglobin 27 pg (26-34); Mean Corpuscular Volume 85 fL (80-100); Platelet Count* 294 K/uL (140-440); Red Blood Count 4.03 m/uL (4.00-5.20)
[2024-12-25 08:14] LABS: Slide Review Reflex No
[2024-12-25 08:22] LABS: Creatinine* 0.6 mg/dL (0.5-1.5); Est. Creatinine Clearance* 128.98; Estimated Glomerular Filt Rate 128 ml/min
[2024-12-25 08:23] LABS: Alanine Aminotransferase* 226 U/L (4-35); Aspartate Amino Transferase* 320 U/L (12-35); Blood Urea Nitrogen* 10 mg/dL (5-24)
[2024-12-25 08:25] LABS: Magnesium* 6.7 mg/dL (1.5-2.6)
[2024-12-25] MEDS: NIFEdipine 30 MG TAB.ER.24 60 MG PO (10:05)
[2024-12-25] MEDS: MAGNESIUM Infusion 40 GM/1,000 ML IV.SOLN IVPB (10:51)
--- NOTE | 2024-12-25 11:31 | PM.OBPNVD1 ---
OB - PN:Subj Subjective Time Seen by Provider: 09:30 Date Seen: 12/25/24 Interval history: Patient was readmitted on 12/24/24 at POD#4 after uncomplicated scheduled repeat delivery for preeclampsia with severe features. She was diagnosed with preeclampsia without severe features during her in-hospital course. This was based on persistently elevated blood pressures in the mild range accompanied by proteinuria. She was started on nifedipine ER 30 mg once daily. She was ultimately discharged on this medication on 12/22/2024, postoperative day 2. She returned to clinic on 12/24/24 with BPs 150s /90s. HELLP labs showed transaminases newly elevated more than twice the upper limit of normal. Preeclampsia with severe features was diagnosed based on this finding. She was sent to Center for magnesium infusion. Narrative: Overnight patient had very difficult time with anxiety. She's been googling transaminitis/preeclampsia with severe features and had multiple panic attacks due to fear of . She was offered hydroxyzine and antidepressant given her level of anxiety but declined. Reports that she is in the middle of a custody hanson for her other child and mental health diagnosis has been used against her in the past. She had another panic attack this morning which takes the form of dry heaving and crying. Upon arrival, patient is dry heaving into an emesis bag and very tearful. She is consolable. We had a lengthy conversation about pre-eclampsia with regards to risks, complications and treatments. She has transaminitis but I do not suspect that will resolve back to normal for weeks. Generally, the time frame is if it does not return to normal by 6 weeks , we would place a referral to cardio tech. That being said, most transaminitis related to preeclampsia will resolve within that time frame with appropriate treatment. The treatment for preeclampsia is delivery and magnesium sulfate for seizure prophylaxis. She is delivered and currently on magnesium sulfate for seizure prophylaxis. Reassured patient that she is being managed appropriately. Patient admits she has an intense fear of dying and reading about the condition online causes her great suffering. Thus, I recommend against perseverating over her liver enzymes if it has going to cause such distress. Ultimately, we would not be doing anything differently as her blood pressures have been well controlled overnight with antihypertensive medication, currently on magnesium sulfate, and she is asymptomatic. We will continue to monitor her even after magnesium sulfate is discontinued for 24 hours to make sure her blood pressure are still appropriate. I recommend starting an antidepressant as early intervention will decrease her suffering and decrease severity of anxiety/depression. She's been on fluoxetine for depression in the past. Reported good response during her period. She did not require fluoxetine after the period. She wants to be off magnesium sulfate prior to making her decision about accepting pharmacologic treatment for her anxiety/depression. Her pain is well controlled on oral pain medications. She is tolerating a regular diet. She has passed flatus. She is ambulating without difficulty. Lochia is scant. She is urinating without cai. Patient denies chest pain, SOB, n/v, headache, RUQ pain, vision changes, dizziness. OB - PN: Obj Exam Physical Exam: Vital signs: Temp Pulse Resp BP Pulse Ox O2 Del Method 97.7 F 109 H 16 123/74 99 Room Air 12/25/24 07:35 12/25/24 09:15 12/25/24 09:15 12/25/24 09:15 12/25/24 09:15 12/25/24 09:15 Narrative: Physical exam: General: No acute distress Psych: Alert and oriented x4, full affect HEENT: Normocephalic, atraumatic Heart: Regular rate and rhythm, no murmur rub or gallop Lungs: Clear to auscultation bilaterally Abdomen: Normoactive bowel sounds, soft, no tenderness, rebound, or guarding, no masses, no hepatosplenomegaly, no hernias Incision(s): Appropriately tender to palpation. Clean, dry, and intact. No erythema, induration, or abnormal discharge/breakdown Skin: No lesions or rashes Lower extremities: +1 lower extremity edema bilaterally Pelvic exam: No bleeding on pad OB - PN: Obj Data Labs Labs: Laboratory Results - last 24 hr 12/24/24 12/25/24 12/25/24 18:28 00:30 08:00 WBC 9.19 8.80 8.30 RBC 3.86 L 3.91 L 4.03 Hgb 10.3 L 10.4 L 10.7 L Hct 33.0 34.0 34.2 MCV 86 87 85 MCH 27 27 27 MCHC 31 L 31 L 31 L Plt Count 282 254 294 BUN 11 11 10 Creatinine 0.6 0.5 0.6 Estimated Creat Clear 128.98 Estimated GFR 128 133 128 Magnesium 6.7 H* AST 211 H 210 H 320 H ALT 153 H 161 H 226 H OB - PN: A/P Delivery Assessment and Plan (1) Pre-eclampsia: Problem details: with severe features based on transaminitis during course Status: Acute Assessment and Plan: - Continue IV magnesium sulfate infusion for a total of 24 hrs - Strict I/Os - Continue nifedipine, but increased doses to 60 mg of ER formulation q.a.m., 30 mg q.p.m.. - IV antihypertensives for blood pressures greater than 160 systolic, 110 diastolic. - Pre-e labs on 12/25/24: Hgb 10.7, plt 294, Cr 0.6, ALT 226, AST 320 - Mag level: 6.7 (2) care following delivery: Status: Acute Assessment and Plan: - Routine cares otherwise (3) Anemia: Status: Acute Assessment and Plan: - Pre surgical Hgb 9.7 (10) - Post surgical Hgb: 10.4 --> 8.7 --> 10.2 --> 10.3 --> 10.4 --> 10.7 (4) Lactating mother: Status: Acute (5) anxiety: Status: Acute Assessment and Plan: - Denies SI/HI - Declined SSRI currently - Will continue to monitor and give symptomatic support (6) depression: Status: Acute
[2024-12-25] MEDS: FERROUS SULFATE 325 MG TABLET PO (18:35)
[2024-12-25] MEDS: NIFEdipine 30 MG TAB.ER.24 PO (22:29)
[2024-12-26 00:20] VITALS: BP 132/84; PULSE 94; RESP 16; O2SAT 99
[2024-12-26 04:05] VITALS: BP 135/82; PULSE 94; RESP 18; TEMP 36.8; O2SAT 98
[2024-12-26] MEDS: ONDANSETRON ODT 4 MG TAB PO (06:35)
[2024-12-26 07:05] LABS: Alanine Aminotransferase* 230 U/L (4-35); Aspartate Amino Transferase* 197 U/L (12-35); Blood Urea Nitrogen* 14 mg/dL (5-24); Creatinine* 0.7 mg/dL (0.5-1.5); Est. Creatinine Clearance* 110.55; Estimated Glomerular Filt Rate 123 ml/min
[2024-12-26 07:06] LABS: Hematocrit 33.6 % (33.0-51.0); Hemoglobin* 10.5 gm/dL (12.0-16.0); Mean Corpuscular HGB Conc 31 gm/dL (32-36); Mean Corpuscular Hemoglobin 27 pg (26-34); Mean Corpuscular Volume 86 fL (80-100); Platelet Count* 313 K/uL (140-440); Red Blood Count 3.93 m/uL (4.00-5.20); White Blood Count* 8.07 K/uL (4.50-11.00)
[2024-12-26 07:08] LABS: Slide Review Reflex No
[2024-12-26 08:49] VITALS: BP 142/87; PULSE 81; RESP 16; TEMP 37; O2SAT 98
[2024-12-26] MEDS: NIFEdipine 30 MG TAB.ER.24 60 MG PO (09:25)
--- NOTE | 2024-12-26 09:55 | PM.OBDSVD1 ---
DS: Providers Provider Time Seen by Provider: 09:55 Date Seen: 12/26/24 Date of admission: 12/24/24 13:48 Primary care physician: Lizbet Zapata PA-C Admitting Clinician: Marsha Garcia MD Consults: 12/25/24 13:28 Consult to [facility] [CONS] Routine Comment: Reason for Consult:: Social Service Consult Psycho-Social Needs Attending Physician on discharge: Marsha Garcia MD Date of Discharge: 12/26/24 DS: Diagnosis Discharge Diagnosis (1) depression: Status: Acute (2) anxiety: Status: Acute (3) Pre-eclampsia: Status: Acute Problem details: with severe features based on transaminitis during course Exam Narrative: Exam Narrative: General: No acute distress Psych: Alert and oriented x4, full affect HEENT: Normocephalic, atraumatic Heart: Regular rate and rhythm, no murmur rub or gallop Lungs: Clear to auscultation bilaterally Abdomen: Normoactive bowel sounds, soft, no tenderness, rebound, or guarding, no masses, no hepatosplenomegaly, no hernias Incision(s): Appropriately tender to palpation. Clean, dry, and intact. No erythema, induration, or abnormal discharge/breakdown Skin: No lesions or rashes Lower extremities: +1 lower extremity edema bilaterally Pelvic exam: No bleeding on pad Const: Vital Signs, click to edit/add: Vital Signs - 24 hr 12/25/24 12:37 12/25/24 14:50 12/25/24 16:17 Temperature 98 F 98.4 F Pulse Rate [Pulse Oximeter] 98 101 H 105 H Respiratory Rate 16 16 Blood Pressure [Le ft Arm] 135/87 128/76 145/81 H Pulse Oximetry 98 98 99 Oxygen Delivery Me thod Room Air Room Air Room Air 12/25/24 19:52 12/26/24 00:20 12/26/24 04:05 Temperature 98.2 F Pulse Rate [Pulse Oximeter] 104 H 94 94 Respiratory Rate 16 16 18 Blood Pressure [Le ft Arm] 130/79 132/84 135/82 Pulse Oximetry 98 99 98 Oxygen Delivery Me thod Room Air Room Air Room Air 12/26/24 08:49 Temperature 98.6 F Pulse Rate [Pulse Oximeter] 81 Respiratory Rate 16 Blood Pressure [Le ft Arm] 142/87 H Pulse Oximetry 98 Oxygen Delivery Me thod Room Air OB - DS: Summary Hospital Course Hospital Course: Patient was readmitted on 12/24/24 at POD#4 after uncomplicated scheduled repeat delivery for preeclampsia with severe features. She was diagnosed with preeclampsia without severe features during her in-hospital course. This was based on persistently elevated blood pressures in the mild range accompanied by proteinuria. She was started on nifedipine ER 30 mg once daily. She was ultimately discharged on this medication on 12/22/2024, postoperative day 2. She returned to clinic on 12/24/24 with BPs 150s /90s. HELLP labs showed transaminases newly elevated more than twice the upper limit of normal. Preeclampsia with severe features was diagnosed based on this finding. She was sent to [facility] magnesium infusion. She received 24hr of magnesium sulfate and an additional 24hr of monitoring after completion of magnesium sulfate. Overnight patient had no complaints. Declined antidepressant for symptomatic management of anxiety/depression. Her pain is well controlled on oral pain medications. She is tolerating a regular diet. Normal BM. She is ambulating without difficulty. Lochia is scant. She is urinating without cai. Patient denies chest pain, SOB, n/v, headache, RUQ pain, vision changes, dizziness. Will discharge on Nifedipine XL 60 mg QAM and 30mg QPM. Patient will continue with BP log. Time Spent with Patient Time attestation: Total time spent providing and/or coordinating discharge services: Time spent: Less than 30 minutes Discharge Plan Discharge Disposition: Home, Self-Care Date of Admission: 12/24/24 13:48 Attending Provider on Discharge: Kira Nguyen Primary Care Provider: Lizbet Zapata Condition: Stable Anticipated Discharge Date/Time: 12/26/24 07:53 Discharge Medications: New nifedipine 30 mg Tablet Extended Release 24hr 30 mg PO Q24H 30 Days Qty: 30 0RF nifedipine 60 mg tablet extended release 24hr 60 mg PO Q24H 30 Days Qty: 30 0RF ondansetron 4 mg Tablet,Disintegrating 4 mg PO Q6H PRN14 Days Qty: 20 0RF Continued multivitamin [Daily Multi-Vitamin] Tablet 1 tab PO QDAY ferrous sulfate 325 mg (65 mg iron) Tablet 325 mg PO Q48H Qty: 60 0RF Discontinued nifedipine 30 mg Tablet Extended Release 24hr 30 mg PO DAILY Qty: 30 1RF Discharge Orders: Discharge Order (Routine); Ordered 12/26/24 Ordered By: Kira Nguyen Patient Education: Hypertension During (DC) Follow Up Appointments: Lizbet Zapata PA-C [Primary Care Provider] - Forms: MyHealth Info Instructions Discharge Comments: Follow up in 3-5 days for BP check
[2024-12-26 12:17] VITALS: BP 128/82; PULSE 90; RESP 16; TEMP 36.8; O2SAT 97
== END 2024-12-26 13:30 | disposition home or self-care (01) | DRG 776 ==
LOC: OB 13:53
PROVIDERS: Obstetrics & Gynecology; Admitting Provider Obstetrics & Gynecology; PCP Physician Assistant; Visit Provider Obstetrics & Gynecology
DX: O14.15 Severe pre-eclampsia, complicating the puerperium (principal); O90.81 Anemia of the puerperium; D64.9 Anemia, unspecified; O99.345 Other mental disorders complicating the puerperium; F41.9 Anxiety disorder, unspecified; F53.0 Postpartum depression
CPT/HCPCS: 36415; 82565; 82570; 83735; 84156; 84450; 84460; 84520; 85027; A9270; J3475; J7120

== ENCOUNTER 2025-01-11 13:11 | Outpatient (CLI) | payer OTHER, BC, SELFPAY | END 2025-01-11 13:12 | disposition home or self-care (01) | PROVIDERS: PCP Physician Assistant; Visit Provider Obstetrics & Gynecology | DX: B37.2 Candidiasis of skin and nail (principal); D64.9 Anemia, unspecified | CPT/HCPCS: 87070; 87102 ==

== ENCOUNTER 2025-02-02 11:17 | Outpatient (CLI) | payer OTHER, BC, SELFPAY ==
[2025-02-04 01:04] LABS: HPV Source Cervix; HPV, High Risk by TMA Not Detected
== END 2025-02-02 11:18 | disposition home or self-care (01) ==
PROVIDERS: PCP Physician Assistant; Visit Provider Registered Nurse
DX: Z12.4 Encounter for screening for malignant neoplasm of cervix (principal)
CPT/HCPCS: 84450; 84460; 87624; 87625; 88141; 88142

== ENCOUNTER 2025-05-02 08:45 | Outpatient (RCR) | payer OTHER, BC, SELFPAY | END 2025-07-13 15:20 | disposition home or self-care (01) | PROVIDERS: PCP Physician Assistant; Visit Provider Registered Nurse | DX: M62.08 Separation of muscle (nontraumatic), other site (principal); R27.8 Other lack of coordination; Z51.89 Encounter for other specified aftercare | CPT/HCPCS: 97110; 97112; 97140; 97161 ==